=== PATIENT | female | born 1990 | race Caucasian/White ===

== ENCOUNTER 2022-11-24 20:17 | Observation (INO) | payer BC, SELFPAY ==
[2022-11-24 20:46] VITALS: BP 140/86; PULSE 91; RESP 16; TEMP 36.3
[2022-11-24 20:50] VITALS: TEMP 36.3
[2022-11-24 20:54] LABS: Basophils Percent Auto 0.2 % (0.2-2.0); Eosinophils Absolute Auto 0.1 10^3/uL (0.0-0.7); Eosinophils Percent Auto 0.6 % (0.9-7.0); Hematocrit 36.2 % (36.0-48.0); Hemoglobin 11.9 g/dL (12.0-16.0); Immature Granulocytes Abs Auto 0.04 10^3/uL (0.00-0.03); Immature Granulocytes Pct Auto 0.4 % (0.0-0.5); Lymphocytes Absolute Auto 1.7 10^3/uL (1.2-3.8); Mean Corpuscular HGB Conc 32.9 g/dL (29.9-35.2); Mean Corpuscular Hemoglobin 30.3 pg (26.7-34.0); Mean Corpuscular Volume 92.1 fL (81.0-99.0); Mean Platelet Volume 9.3 fL (9.5-13.5); Monocytes Absolute Auto 0.6 10^3/uL (0.3-0.8); Monocytes Percent Auto 6.5 % (1.7-12.0); Neutrophils Absolute Auto 6.6 10^3/uL (1.4-6.5); Neutrophils Percent Auto 73.3 % (43.0-75.0); Platelet Count 228 10^3/uL (150-450); Red Blood Count 3.93 10^6/uL (4.20-5.40)
[2022-11-24 20:55] LABS: Bilirubin Urine NEGATIVE (NEGATIVE); Blood Urine NEGATIVE (NEGATIVE); Clarity Urine CLEAR (CLEAR); Color Urine YELLOW (YELLOW); Glucose Urine UA NEGATIVE (NEGATIVE); Ketones Urine NEGATIVE (NEGATIVE); Leukocyte Esterase Urine NEGATIVE (NEGATIVE); Nitrite Urine NEGATIVE (NEGATIVE); Protein Urine NEGATIVE (NEG/TRACE); Specific Gravity Urine 1.025 (1.005-1.025); Urobilinogen Urine 0.2 EU/dL (0.2-1.0)
[2022-11-24 20:57] LABS: Urine Microscopic Indicated NO
[2022-11-24 21:01] LABS: Creatinine Urine Random 150.85 mg/dL (20.00-300.00); Protein Creatinine Ratio Urine 0.12; Total Protein Urine Random 17.4 mg/dL (<=11.9)
[2022-11-24 21:04] VITALS: BP 118/67; PULSE 90
[2022-11-24 21:10] LABS: Alanine Aminotransferase 18 U/L (14-59); Albumin Globulin Ratio 0.7; Albumin Level 2.5 g/dL (3.4-5.0); Alkaline Phosphatase 131 U/L (46-116); Anion Gap 11.4; Aspartate Amino Transferase 14 U/L (15-37); BUN Creatinine Ratio 11.8; Bilirubin Total 0.2 mg/dL (0.2-1.0); Carbon Dioxide 23.4 mmol/L (21.0-32.0); Chloride 105 mmol/L (98-107); Estimated GFR (African America >60 (>=60); Estimated GFR (Non-African Ame >60 (>=60); Globulin 3.6 g/dL; Glucose 97 mg/dL (74-106); Potassium 3.8 mmol/L (3.5-5.1); Sodium 136 mmol/L (136-145); Total Protein 6.1 g/dL (6.4-8.2); Uric Acid 4.9 mg/dL (2.6-6.0)
[2022-11-24 21:13] LABS: Partial Thromboplastin Time 23.9 sec (22.3-36.2); Prothrombin Time 9.4 sec (9.0-11.6)
[2022-11-24 21:14] LABS: INR <0.93
[2022-11-24 21:17] VITALS: BP 125/70; PULSE 88
[2022-11-24 21:32] VITALS: BP 132/79; PULSE 83
--- NOTE | 2022-11-25 00:20 | PM.OBPRCCS ---
Procedure Pre-op/Post-op diagnoses: PRIOR CS, DESIRES PERMANENT STERILIZATION Procedure: REPEAT LTCS WITH BILATERAL SALPINGECTOMY Estimated blood loss (mL): 600 Disposition: other (B[facility]ING [facility]ENTER) Anesthesia type: Spinal Complications: NONE Narrative: ABDULKADIR ADAM SA
--- NOTE | 2022-12-13 12:24 | PM.OBPN ---
OB - PN: Subj Subjective [place] status: other (This patient came into maternity because she stated her blood pressure at home was elevated and she had a headache though not the worst headache of her life. PIH labs were drawn. These labs were normal. The urine P:C ration was normal. Headache resolved with tylenol. ) Exam Constitutional Vital Signs, click to edit/add: Last Vital Signs Temp 97.3 F L 11/24/22 20:50 Pulse 83 11/24/22 21:32 Resp 16 11/24/22 20:46 BP 132/79 11/24/22 21:32 Documenting provider has reviewed patient's vital signs: yes Common normals: no apparent distress, oriented x3, healthy appearing and alert General appearance: cooperative and comfortable Nutritional appearance: obese HENMT Common normals: normocephalic and head/scalp atraumatic Eye Pupil: PERRL and accommodation reflex normal Neck & C-Spine Common normals: full ROM and supple Respiratory Common normals: normal respiratory effort Cardio Common normals: regular rate and regular rhythm GI Common normals: Normal to inspection, nondistended, normoactive bowel sounds present and non-tender Common normals: no CVA tenderness Extremity Common normals: normal to inspection, full ROM and no calf tenderness Neuro Common normals: CN's II-XII intact bilaterally, moves all extremities, no focal motor deficits, no sensory deficits noted and deep tendon reflexes 2+ bilaterally Psych Common normals: mental status grossly normal, thought process normal, cooperative and affect normal OB - PN: A/P Assessment and Plan (1) Elevated blood pressure affecting in third trimester, antepartum: (2) Term : Plan THIRD TRIMESTER IN [place]ESE PATIENT CONCERNED BECAUSE BP TAKEN AT HOME ELEVATED. ON MATERNITY BLOOD PRESSURE NORMAL. HEADACHE RESOLVED WITH TYLENOL. PIH ASSESSMENT NEGATIVE. HEART REASURRING. NO CONTRACTIONS. EXPLAINED THE LABS AND URINE P:C TO PATIENT. EXPLAINED EXAM NOT REFLECTING PIH. EXPLAINED THAT HOME BP MACHINES OFTEN NOT ACCURATE AND THAT THE CUFF FOR HER UPPER ARM MAY BE TOO SMALL. SHE WAS DISCHARGED HOME REASSURED AND WITHOUT QUESTIONS Time Spent with Patient Time: Total time spent is greater than 50% in coordination of care (as documented) at patient's floor/unit and/or counseling patient: Total time spent with greater than 50% in coordination of care (as documented) at patient's floor/unit and/or counseling patient: less than 15 minutes
== END 2022-11-24 23:50 | disposition home or self-care (01) ==
PROVIDERS: Admitting Provider Obstetrics & Gynecology; PCP Family Medicine; Visit Provider Obstetrics & Gynecology
DX: O16.3 Unspecified maternal hypertension, third trimester (principal); O26.893 Other specified pregnancy related conditions, third trimester; R51.9 Headache, unspecified; R60.9 Edema, unspecified; Z3A.00 Weeks of gestation of pregnancy not specified; Z3A.36 36 weeks gestation of pregnancy
CPT/HCPCS: 36415; 59025; 80053; 81003; 82570; 84156; 84550; 85025; 85610; 85730; 86850; 86900; 86901; G0378; G0379

== ENCOUNTER 2022-12-09 19:05 | Inpatient (IN) | payer BC, SELFPAY ==
[2022-12-09] VITALS (13 sets, daily range): BP systolic 128–154; BP diastolic 85–96; PULSE 78–99; RESP 16–18; TEMP 36.4–36.6
[2022-12-09 19:55] LABS: Basophils Percent Auto 0.2 % (0.2-2.0); Eosinophils Percent Auto 0.3 % (0.9-7.0); Hematocrit 36.1 % (36.0-48.0); Immature Granulocytes Abs Auto 0.04 10^3/uL (0.00-0.03); Immature Granulocytes Pct Auto 0.4 % (0.0-0.5); Lymphocytes Absolute Auto 1.4 10^3/uL (1.2-3.8); Lymphocytes Percent Auto 16.1 % (20.5-60.0); Mean Corpuscular HGB Conc 33.2 g/dL (29.9-35.2); Mean Corpuscular Hemoglobin 30.1 pg (26.7-34.0); Mean Corpuscular Volume 90.5 fL (81.0-99.0); Mean Platelet Volume 9.5 fL (9.5-13.5); Monocytes Absolute Auto 0.5 10^3/uL (0.3-0.8); Monocytes Percent Auto 5.9 % (1.7-12.0); Neutrophils Absolute Auto 6.9 10^3/uL (1.4-6.5); Neutrophils Percent Auto 77.1 % (43.0-75.0); Platelet Count 205 10^3/uL (150-450); Red Blood Count 3.99 10^6/uL (4.20-5.40)
[2022-12-09 19:56] LABS: Bilirubin Urine NEGATIVE (NEGATIVE); Blood Urine NEGATIVE (NEGATIVE); Clarity Urine CLEAR (CLEAR); Color Urine LT. YELLOW (YELLOW); Glucose Urine UA NEGATIVE (NEGATIVE); Ketones Urine NEGATIVE (NEGATIVE); Leukocyte Esterase Urine NEGATIVE (NEGATIVE); Nitrite Urine NEGATIVE (NEGATIVE); Protein Urine TRACE mg/dL (NEG/TRACE); Specific Gravity Urine 1.015 (1.005-1.025); Urobilinogen Urine 0.2 EU/dL (0.2-1.0)
--- NOTE | 2022-12-09 19:59 | US_ITS ---
[facility] [place] [id number] Patient Name: KITTY DUNLAP MRN: [id number] date: 1990 Sex: F Assigned Patient Location: [facility] Current Patient Location: [facility] Accession/Order Number: [id number] Exam Date: 12/09/2022 20:10 Report Date: 12/09/2022 21:33 At the request of: SASHA SR Procedure: US venous doppler LE LT EXAM: US venous doppler LE LT HISTORY: leg pain and edema COMPARISON: None TECHNIQUE: Extremity ultrasound performed to evaluate for DVT. Doppler interrogation was FINDINGS: No findings of left lower extremity DVT. Hypoechoic structure seen in the area of clinical concern in the left leg which may represent superficial thrombophlebitis as it is somewhat tubular US/US venous doppler LE LT IMPRESSION: No findings of left lower extremity DVT Possible superficial thrombophlebitis in the left thigh Electronically authenticated by: ALEX VIRK Date: 12/09/2022 21:33
[2022-12-09 20:00] LABS: Urine Microscopic Indicated NO
[2022-12-09 20:01] LABS: Creatinine Urine Random 106.32 mg/dL (20.00-300.00); Protein Creatinine Ratio Urine 0.24; Total Protein Urine Random 25.4 mg/dL (<=11.9)
[2022-12-09 20:30] LABS: Albumin Globulin Ratio 0.7; Albumin Level 2.5 g/dL (3.4-5.0); Alkaline Phosphatase 161 U/L (46-116); Anion Gap 14.8; Aspartate Amino Transferase 18 U/L (15-37); Bilirubin Total 0.2 mg/dL (0.2-1.0); Calcium 8.3 mg/dL (8.5-10.1); Carbon Dioxide 20.9 mmol/L (21.0-32.0); Chloride 104 mmol/L (98-107); Estimated GFR (African America >60 (>=60); Estimated GFR (Non-African Ame >60 (>=60); Globulin 3.7 g/dL; Glucose 79 mg/dL (74-106); Lactate Dehydrogenase 210 U/L (81-234); Potassium 3.7 mmol/L (3.5-5.1); Sodium 136 mmol/L (136-145); Total Protein 6.2 g/dL (6.4-8.2); Uric Acid 5.9 mg/dL (2.6-6.0)
[2022-12-09 20:47] LABS: Alanine Aminotransferase 15 U/L (14-59); BUN Creatinine Ratio 13.2
[2022-12-09] MEDS: DINOPROSTONE 10 MG VAG INSERT.ER VAGINAL (23:37)
[2022-12-09] MEDS: ZOLPIDEM TARTRATE 5 MG TABLET PO (23:37)
[2022-12-09] MEDS: ACETAMINOPHEN 500 MG TABLET 1000 MG PO (23:37)
[2022-12-09 23:43] LABS: Amphetamine Screen Urine NEGATIVE (NEGATIVE); Barbiturates Screen Urine NEGATIVE (NEGATIVE); Benzodiazepines Screen Urine NEGATIVE (NEGATIVE); Buprenorphine Screen Urine NEGATIVE (NEGATIVE); Cannabinoid Screen Urine NEGATIVE (NEGATIVE); Cocaine Screen Urine NEGATIVE (NEGATIVE); Methadone Screen Urine NEGATIVE (NEGATIVE); Methamphetamines Screen Urine NEGATIVE (NEGATIVE); Opiate Screen Urine NEGATIVE (NEGATIVE); Oxycodone Screen Urine NEGATIVE (NEGATIVE); Phencyclidine Screen Urine NEGATIVE (NEGATIVE); Tricyclic Antidepressant Urine NEGATIVE (NEGATIVE)
[2022-12-10] VITALS (26 sets, daily range): BP systolic 123–166; BP diastolic 66–93; PULSE 68–129; RESP 14–18; TEMP 37–37.6
--- NOTE | 2022-12-10 07:26 | W.PC.ACHO ---
Registration Status: ADM IN Primary Language: [place] Citizen Preferred Language: [place] Citizen Active Medications reported off to Viri OSUNA Generic Name Dose Route Start Last Admin Trade Name Freq PRN Reason Stop Dose Admin Acetaminophen 1,000 mg 12/09/22 23:18 12/09/22 23:37 Acetaminophen 500 Mg Tablet PO 1,000 mg Q6H PRN Administration Pain Scale 1-3 Calcium Carbonate 500 mg 12/09/22 23:16 Calcium Carbonate 500 Mg (200mg Elemental) Tab Chew PO TID PRN Indigestion Carboprost Tromethamine 250 mcg 12/09/22 22:44 Carboprost Tromethamine 250 Mcg/Ml 1 Ml Vial IM 12/11/22 22:46 Q15M PRN Bleeding Sodium Chloride 1,000 mls @ 125 mls/hr 12/09/22 22:45 Sodium Chloride 0.9% 1,000 Ml IV .Q8H DENNY Lidocaine 5 ml 12/09/22 22:50 Lidocaine Viscous 2% 15 Ml Solution TOPICAL ONCE PRN Pain Lidocaine 1 ml 12/09/22 22:50 Lidocaine Hcl 1% 200 Mg/20 Ml Mdv INJ ONCE PRN Pain Methylergonovine Maleate 0.2 mg 12/09/22 22:44 Methylergonovine Maleate 0.2 Mg/Ml Ampule IM 12/11/22 22:46 ONCE PRN Uterine Contractility/Contract Methylergonovine Maleate 0.2 mg 12/09/22 22:44 Methylergonovine Maleate 0.2 Mg Tablet PO 12/11/22 22:46 Q4H PRN Uterine Contractility/Contract Misoprostol 600 mcg 12/09/22 22:44 Misoprostol 100 Mcg Tablet PO 12/11/22 22:46 ONCE PRN Uterine Bleeding Misoprostol 800 mcg 12/09/22 22:44 Misoprostol 100 Mcg Tablet SL 12/11/22 22:46 ONCE PRN Uterine Bleeding Misoprostol 1,000 mcg 12/09/22 22:44 Misoprostol 100 Mcg Tablet MA 12/11/22 22:46 ONCE PRN Uterine Bleeding Ondansetron HCl 4 mg 12/09/22 22:44 Ondansetron Pf 4 Mg/2 Ml Vial IV Q6H PRN Nausea And Vomiting Ondansetron HCl 4 mg 12/09/22 22:44 Ondansetron 4 Mg Rapdis Tablet SL Q6H PRN Nausea And Vomiting Oxytocin 10 unit 12/09/22 22:44 Oxytocin 10 Unit/Ml Vial IM 12/11/22 23:59 ONCE PRN Bleeding Zolpidem Tartrate 5 mg 12/09/22 23:16 12/09/22 23:37 Zolpidem Tartrate 5 Mg Tablet PO 5 mg HS PRN Administration Insomnia Diet Category Date Time Status Clear Liquid Diet Diet 12/10/22 Breakfast Active IV Insertion/Site Date of IV Line Insertion [20g 12/09/22 right Antecubital] IV Insertion Time [20g right 19:35 Antecubital] Respiratory Oxygen Delivery Method Room Air
[2022-12-10] MEDS: 0.9 % SODIUM CHLORIDE 1,000 ML 999 ML IV (09:26)
[2022-12-10] MEDS: LIDOCAINE HCL 1% 200 MG/20 ML MDV 30 ML INJ (10:30)
[2022-12-10] MEDS: OXYTOCIN/0.9 % SODIUM CHLORIDE 20 UNITS/1,000 ML PLAST..BAG 125 UNIT IV (11:26)
--- NOTE | 2022-12-10 11:28 | PM.OBHP ---
OB - H&P: HPI History of Present Illness Chief complaint: HIGH BLOOD PRESSURE, CONTRACTION 38 WEEKS : 2 Para: 1 Date of last menstrual period: 03/16/2022 Gestational age based on last menstrual period: 38.3 Indications for induction: maternal hypertension Narrative: patient was at work yesterday and came to me in the office stating I don't feel good, I'm sandra, really nauseated and swollen and something just doesn't feel right. Blood pressure in the office was 160/100 and then left tilt position and on EFM and retaken 10 mins later, BP was 158/100. She states she has had a headache off and on all weekend and today rates her pain a 7 out of 10. She states she feels light headed, has a slight headache. Denies visual changes, no epigastric pain. She states she has been sandra all weekend. SVE 1-2/60/-3 very soft. Patient sent to [facility] to L&D for evaluation. Orders given. Dr Ly updated with my plan of care. Patient then c/o headache worsening, contractions getting more uncomfortable. Blood pressure ranging from 130's-150's over high 80's and 90's. I spoke with patient on the phone and she states I'm not comfortable going home, I just don't feel well. At this time she has mild preeclampsia and trace proteinuria and will be induced as plan of care. Labs reviewed, blood pressures elevated and orders given for admission, preeclamptic labs and Cervidil. History of Present Dating criteria: LMP confirmed by 1st trimester US care: good care Ultrasounds: normal 1st trimester US and normal mid trimester US complications comment: elevated blood pressures over the past 4 days Medical complications OB: none Labs Blood type: A (+) positive Rubella: nonimmune RPR/VDLR: nonreactive GBS status: negative HBsAG: negative Review of Systems ROS Status of ROS 10 or more systems reviewed and unremarkable except as noted in history and below [facility] PFS Surgical History (Updated 11/24/22 @ 21:02 by Dima Chino) [place] teeth extracted ?K08.409 - Partial loss of teeth, unspecified cause, unspecified class (ICD-10) Social History (Updated 11/24/22 @ 21:05 by Dima Chino) Within the past year, how often did you have a drink containing alcohol: never Within the past year, how often did you have six or more drinks on one occasion: never Score interpretation: A score less than 3 is consistent with normal alcohol consumption. Smoking status: Never smoker Non-prescribed substance use: denies use Highest level of school completed/degree received: Master's degree Are you now , , , , never or living with a partner: In a typical week, how many times do you talk on the telephone with family, friends, or neighbors: 3 or more times per week How often do you get together with friends or relatives: 3 or more times per week Little interest or pleasure in doing things: not at all Feeling down, depressed, or hopeless: not at all Feel stressed/tense/nervous/anxious/difficulty sleeping: not at all Do you think of yourself as: straight/heterosexual Gender Identity: female Meds Home Medications and Allergies Home Medications Medication Instructions Recorded Confirmed Type acetaminophen PO 11/24/22 History Allergies Allergy/AdvReac Type Severity Reaction Status Date / Time No Known Drug Allergies Allergy Verified 11/24/22 21:01 Exam Constitutional Vital Signs, click to edit/add: Last Vital Signs Temp 97.6 F 12/09/22 23:02 Pulse 94 H 12/10/22 11:25 Resp 16 12/10/22 06:53 BP 154/74 H 12/10/22 11:25 O2 Del Method Room Air 12/09/22 23:02 Documenting provider has reviewed patient's vital signs: yes Common normals: no apparent distress General appearance: cooperative Orientation/consciousness: Yes awake, Yes oriented to person, Yes oriented to place and Yes oriented to time HENMT Common normals: normocephalic Eye Common normals: EOMs intact bilaterally General eye: normal appearance of both eyes Neck & C-Spine Common normals: full ROM and no lymphadenopathy General: normal visual inspection Lymph Lymphatic: no lymphadenopathy noted Chest Common normals: inspection of chest normal Respiratory Common normals: normal respiratory effort Effort & inspection: able to speak in complete sentences Cardio Common normals: no JVD, regular rate and regular rhythm Rate: regular rate Rhythm: regular rhythm GI Common normals: Normal to inspection, nondistended, normoactive bowel sounds present and non-tender Inspection: normal to inspection Auscultation: normoactive bowel sounds Palpation: soft Percussion: normal to percussion Rectal Exam - Female: deferred Common normals: external appearance normal Back & Pelvis Common normals: thoracic and lumbar spine normal to inspection Extremity Common normals: normal to inspection and full ROM Neuro Common normals: oriented x3 and moves all extremities Sensorium/orientation: awake, alert, oriented to person, oriented to place and oriented to time Psych Common normals: mental status grossly normal, thought process normal, cooperative and affect normal Appearance: grossly normal Attitude: calm Activity/motor behavior: appropriate eye contact Speech: normal speech Thought process: normal thought process Results Labs Labs: Short CBC 12/09/22 Range/Units 19:43 WBC 9.0 (4.0-11.0) 10^3/uL Hgb 12.0 (12.0-16.0) g/dL Hct 36.1 (36.0-48.0) % Plt Count 205 (150-450) 10^3/uL BMP 12/09/22 19:43 Sodium 136 Potassium 3.7 Chloride 104 Carbon Dioxide 20.9 L BUN 9.0 Creatinine 0.68 Glucose 79 Calcium 8.3 L Liver Function 12/09/22 Range/Units 19:43 Total Bilirubin 0.2 (0.2-1.0) mg/dL AST 18 (15-37) U/L ALT 15 (14-59) U/L Alkaline Phosphatase 161 H (46-116) U/L Albumin 2.5 L (3.4-5.0) g/dL Urine 12/09/22 Range/Units 19:20 Urine Color Lt. yellow (YELLOW) Urine Clarity Clear (CLEAR) Urine pH 6.0 (5.0-9.0) Ur Specific Jack 1.015 (1.005-1.025) Urine Protein Trace (NEG/TRACE) mg/dL Urine Glucose (UA) Negative (NEGATIVE) mg/dL OB - A/P Assessment and Plan (1) Elevated blood pressure affecting in third trimester, antepartum: (2) Term : Plan Induction of labor- cervical ripening due to elevated blood pressure and headaches
--- NOTE | 2022-12-10 11:53 | PM.EN ---
Event Note Event Note: 0935 call received from RN with report patient is very uncomfortable and got in the shower. She removed the Cervidil and states pt is 3/80/-2. She wanted an epidural and RN states patient did not want to have another cervical exam after getting out of the shower. Order given to check patient before epidural. 0902 RN calls me in my office and states patient is complete and has the urge to push. I stated to nurse I am on my way. 1009 i arrived on unit. SVE complete/100/-1 bulging bag, patient in a hands and knees position. 1015 Patient repositioned to semi fowlers, AROM with sterile amniohook with return on moderate amount of clear, odorless fluid. heart tones stable before, during and after rupture. 1020 preparing for delivery. see Delivery note
--- NOTE | 2022-12-10 12:00 | PM.OBPRCVD ---
Procedure events: Pre-Eclampsia (mild preeclampsia ) Intrapartal events: None Induction method: other (Cervidil -cervical ripening ) Delivery augmentation: rupture of membranes Delivery monitor: external FHT and external uterine Route of delivery: Episiotomy Description: none Laceration description: labial (Left labial repair ) Delivery repair: Vicryl Estimated blood loss (mL): 300 Anesthesia type: None Disposition: no change Delivery date: 01/10/23 Gender: female presentation: vertex Placental delivery description: Spontaneous cord description: 3 Vessels, Nuchal Cord, Loose and Reduced heart rate - 1 minute: 100 bpm or Greater respiratory effort - 1 minute: Spontaneous/Strong Cry muscle tone - 1 minute: Active Movement reflex response - 1 minute: Prompt Response color - 1 minute: Bluish Hands or Feet total score - 1 minute: 9 heart rate - 5 minute: 100 bpm or Greater respiratory effort - 5 minute: Spontaneous/Strong Cry muscle tone - 5 minute: Active Movement reflex response - 5 minute: Prompt Response color - 5 minute: Bluish Hands or Feet total score - 5 minute: 9
[2022-12-10] MEDS: IBUPROFEN 400 MG TABLET 800 MG PO ×2 (13:02→20:18)
[2022-12-10] MEDS: GLYCERIN/WITCH HAZEL PADS 1 PAD TOPICAL (13:03)
[2022-12-10] MEDS: BENZOCAINE/MENTHOL 85 GRAM SPRAY BOTTLE 1 APPLIC TOPICAL (13:03)
--- NOTE | 2022-12-10 13:34 | PC.NURSE ---
1235- Full assessment completed. Patient left leg bruised, scratched, and scabbed d/t injury within the past week. Patient fell at home and after dogs chain wrapped around leg and caused further injury. Dopplers were completed and WNL. Patient complains of minimal pain at site. Leg pink and pulses present. Ruled as thrombophlebitis.
--- NOTE | 2022-12-10 16:22 | PC.NURSE ---
Pt and NB skin to skin infant licking on hands. Discuss previous experience of and unsuccessful efforts. I didn't really put effort into getting milk or keeping it going .. Pt desires to try states But using formula does not bother me Attempted to latch baby in laid back position, nipples flat with tendency to invert with stimulation. Discussed nipple shield as pt asked about benefits of one. Nipple shield discussed, demo of application and returned demo done. to cross cradle hold and latched baby well. Discussed learning of at breast, first 24 hours are spent learning infant and temperament. LC here to support and educate so pt may make informed decisions for self and baby. Verbalized understanding.
--- NOTE | 2022-12-10 19:27 | W.PC.ACHO ---
Registration Status: ADM IN Primary Language: Italian Preferred Language: Italian Active Medications Generic Name Dose Route Start Last Admin Trade Name Freq PRN Reason Stop Dose Admin Acetaminophen 650 mg 12/10/22 12:06 Acetaminophen 325 Mg Tablet PO Q6H PRN Mild Pain Al Hydroxide/Mg Hydroxide 2,400 mg 12/10/22 12:06 Magnesium Hydroxide 2,400 Mg/10 Ml Oral.Susp PO Q6H PRN Dyspepsia Benzocaine/Menthol 1 applic 12/10/22 12:06 12/10/22 13:03 Benzocaine/Menthol 85 Gram [place] Bottle TOPICAL 1 applic Q2H PRN Administration Pain Calcium Carbonate 500 mg 12/09/22 23:16 Calcium Carbonate 500 Mg (200mg Elemental) Tab Chew PO TID PRN Indigestion Carboprost Tromethamine 250 mcg 12/09/22 22:44 Carboprost Tromethamine 250 Mcg/Ml 1 Ml Vial IM 12/11/22 22:46 Q15M PRN Bleeding Diphenhydramine HCl 25 mg 12/10/22 09:27 Diphenhydramine Hcl 50 Mg/Ml (1ml) Vial IV 12/11/22 09:27 Q6H PRN Itching Diphtheria/Pertussis/Tetanus Vacc 0.5 ml 12/12/22 09:00 Adacel Diph,Pertuss(Acell),Tet Vac/Pf 0.5 Ml Adult Syringe IM 12/12/22 09:01 .ONCE ONE Docusate Sodium 100 mg 12/11/22 09:00 Docusate Sodium 100 Mg Capsule PO BID DENNY Ephedrine Sulfate 5 mg 12/10/22 09:27 Ephedrine Sulfate 50 Mg/Ml Vial IV 12/11/22 09:27 Q5M PRN Blood Pressure - Low Sodium Chloride 1,000 mls @ 125 mls/hr 12/09/22 22:45 12/10/22 09:26 Sodium Chloride 0.9% 1,000 Ml IV 999 mls/hr .Q8H DENNY Administration Ropivacaine/Sodium Chloride 400 mg in 200 mls @ 6 mls/hr 12/10/22 09:30 Naropin 0.2% 400 Mg/200 Ml Bag EPIDURAL 12/11/22 09:28 Q24H DENNY Oxytocin 20 unit/ Sodium 1,002 mls @ 125 mls/hr 12/10/22 12:15 12/10/22 10:30 Chloride IV 10/03/23 20:14 125 mls/hr Q8H DENNY Administration Ibuprofen 800 mg 12/10/22 13:00 12/10/22 13:02 Ibuprofen 400 Mg Tablet PO 800 mg Q8H DENNY Administration Lidocaine 5 ml 12/09/22 22:50 Lidocaine Viscous 2% 15 Ml Solution TOPICAL ONCE PRN Pain Lidocaine 30 ml 12/10/22 14:56 12/10/22 10:30 Lidocaine Hcl 1% 200 Mg/20 Ml Mdv INJ 30 ml ONCE PRN Administration Pain Measles/Mumps/Rubella Vaccine Live 0.5 ml 12/12/22 09:00 Measles,Mumps,Rubella Vacc/Pf 0.5 Ml Vial SQ 12/12/22 09:01 .ONCE ONE Methylergonovine Maleate 0.2 mg 12/09/22 22:44 Methylergonovine Maleate 0.2 Mg/Ml Ampule IM 12/11/22 22:46 ONCE PRN Uterine Contractility/Contract Methylergonovine Maleate 0.2 mg 12/09/22 22:44 Methylergonovine Maleate 0.2 Mg Tablet PO 12/11/22 22:46 Q4H PRN Uterine Contractility/Contract Misoprostol 600 mcg 12/09/22 22:44 Misoprostol 100 Mcg Tablet PO 12/11/22 22:46 ONCE PRN Uterine Bleeding Misoprostol 800 mcg 12/09/22 22:44 Misoprostol 100 Mcg Tablet SL 12/11/22 22:46 ONCE PRN Uterine Bleeding Misoprostol 1,000 mcg 12/09/22 22:44 Misoprostol 100 Mcg Tablet MD 12/11/22 22:46 ONCE PRN Uterine Bleeding Naloxone HCl 0.4 mg 12/10/22 09:27 Naloxone Hcl 0.4 Mg/Ml Vial IV 12/11/22 09:27 ONCE PRN Epidural Ondansetron HCl 4 mg 12/09/22 22:44 Ondansetron Pf 4 Mg/2 Ml Vial IV Q6H PRN Nausea And Vomiting Ondansetron HCl 4 mg 12/09/22 22:44 Ondansetron 4 Mg Rapdis Tablet SL Q6H PRN Nausea And Vomiting Oxytocin 10 unit 12/09/22 22:44 Oxytocin 10 Unit/Ml Vial IM 12/11/22 23:59 ONCE PRN Bleeding Senna 17.2 mg 12/10/22 20:00 Sennosides 8.6 Mg Tablet PO QHS PRN Constipation Simethicone 80 mg 12/10/22 12:06 Simethicone 80 Mg Tab.Chew PO QID PRN Abdominal Distention Temazepam 15 mg 12/10/22 12:06 Temazepam 15 Mg Capsule PO QHS PRN Sleep Witch Lori/Glycerin 1 pad 12/10/22 12:06 12/10/22 13:03 Glycerin/Witch Lori Pads TOPICAL 1 pad Q2H PRN Administration Pain Zolpidem Tartrate 5 mg 12/09/22 23:16 12/09/22 23:37 Zolpidem Tartrate 5 Mg Tablet PO 5 mg HS PRN Administration Insomnia Diet Category Date Time Status Regular Consistency Diet Diet 12/10/22 Lunch Active IV Insertion/Site Date of IV Line Insertion [20g 12/09/22 right Antecubital] IV Insertion Time [20g right 19:35 Antecubital] Respiratory Oxygen Delivery Method Room Air Oxygen Delivery Method Room Air Oxygen Delivery Method Room Air Cardiology Heart Sounds Strong,Regular Bowels Date of Last Bowel Movement [ 12/10/22 All Quadrants] Date of Last Bowel Movement [ 12/10/22 All Quadrants] Date of Last Bowel Movement [ 12/10/22 All Quadrants] Date of Last Bowel Movement [ 12/10/22 All Quadrants] Date of Last Bowel Movement [ 12/10/22 All Quadrants] Date of Last Bowel Movement [ 12/10/22 All Quadrants] Date of Last Bowel Movement [ 12/10/22 All Quadrants] Date of Last Bowel Movement [ 12/10/22 All Quadrants] Date of Last Bowel Movement [ 12/10/22 All Quadrants] Date of Last Bowel Movement 12/10/22 Renal Bladder Pattern Continent
[2022-12-11] MEDS: IBUPROFEN 400 MG TABLET 800 MG PO (05:11)
[2022-12-11 05:14] VITALS: BP 159/80; PULSE 84; RESP 16; TEMP 36.6
[2022-12-11 05:59] LABS: Basophils Percent Auto 0.3 % (0.2-2.0); Eosinophils Absolute Auto 0.1 10^3/uL (0.0-0.7); Eosinophils Percent Auto 0.7 % (0.9-7.0); Hematocrit 32.1 % (36.0-48.0); Hemoglobin 10.5 g/dL (12.0-16.0); Immature Granulocytes Abs Auto 0.04 10^3/uL (0.00-0.03); Immature Granulocytes Pct Auto 0.4 % (0.0-0.5); Lymphocytes Absolute Auto 1.8 10^3/uL (1.2-3.8); Lymphocytes Percent Auto 17.8 % (20.5-60.0); Mean Corpuscular HGB Conc 32.7 g/dL (29.9-35.2); Mean Corpuscular Volume 91.7 fL (81.0-99.0); Mean Platelet Volume 9.3 fL (9.5-13.5); Monocytes Absolute Auto 0.7 10^3/uL (0.3-0.8); Monocytes Percent Auto 6.9 % (1.7-12.0); Neutrophils Absolute Auto 7.6 10^3/uL (1.4-6.5); Neutrophils Percent Auto 73.9 % (43.0-75.0); Platelet Count 187 10^3/uL (150-450); Red Cell Distribution Width 13.2 % (11.0-15.0); White Blood Count 10.3 10^3/uL (4.0-11.0)
--- NOTE | 2022-12-11 07:10 | W.PC.ACHO ---
Registration Status: ADM IN Primary Language: [place] Preferred Language: [place] Active Medications Generic Name Dose Route Start Last Admin Trade Name Freq PRN Reason Stop Dose Admin Acetaminophen 650 mg 12/10/22 12:06 Acetaminophen 325 Mg Tablet PO Q6H PRN Mild Pain Al Hydroxide/Mg Hydroxide 2,400 mg 12/10/22 12:06 Magnesium Hydroxide 2,400 Mg/10 Ml Oral.Susp PO Q6H PRN Dyspepsia Benzocaine/Menthol 1 applic 12/10/22 12:06 12/10/22 13:03 Benzocaine/Menthol 85 Gram [place] Bottle TOPICAL 1 applic Q2H PRN Administration Pain Calcium Carbonate 500 mg 12/09/22 23:16 Calcium Carbonate 500 Mg (200mg Elemental) Tab Chew PO TID PRN Indigestion Carboprost Tromethamine 250 mcg 12/09/22 22:44 Carboprost Tromethamine 250 Mcg/Ml 1 Ml Vial IM 12/11/22 22:46 Q15M PRN Bleeding Diphenhydramine HCl 25 mg 12/10/22 09:27 Diphenhydramine Hcl 50 Mg/Ml (1ml) Vial IV 12/11/22 09:27 Q6H PRN Itching Diphtheria/Pertussis/Tetanus Vacc 0.5 ml 12/12/22 09:00 Adacel Diph,Pertuss(Acell),Tet Vac/Pf 0.5 Ml Adult Syringe IM 12/12/22 09:01 .ONCE ONE Docusate Sodium 100 mg 12/11/22 09:00 Docusate Sodium 100 Mg Capsule PO BID DENNY Ephedrine Sulfate 5 mg 12/10/22 09:27 Ephedrine Sulfate 50 Mg/Ml Vial IV 12/11/22 09:27 Q5M PRN Blood Pressure - Low Sodium Chloride 1,000 mls @ 125 mls/hr 12/09/22 22:45 12/10/22 09:26 Sodium Chloride 0.9% 1,000 Ml IV 999 mls/hr .Q8H DENNY Administration Ropivacaine/Sodium Chloride 400 mg in 200 mls @ 6 mls/hr 12/10/22 09:30 Naropin 0.2% 400 Mg/200 Ml Bag EPIDURAL 12/11/22 09:28 Q24H DENNY Ibuprofen 800 mg 12/10/22 13:00 12/11/22 05:11 Ibuprofen 400 Mg Tablet PO 800 mg Q8H DENNY Administration Lidocaine 5 ml 10/02/23 22:50 Lidocaine Viscous 2% 15 Ml Solution TOPICAL ONCE PRN Pain Lidocaine 30 ml 12/10/22 14:56 12/10/22 10:30 Lidocaine Hcl 1% 200 Mg/20 Ml Mdv INJ 30 ml ONCE PRN Administration Pain Measles/Mumps/Rubella Vaccine Live 0.5 ml 12/12/22 09:00 Measles,Mumps,Rubella Vacc/Pf 0.5 Ml Vial SQ 12/12/22 09:01 .ONCE ONE Methylergonovine Maleate 0.2 mg 12/09/22 22:44 Methylergonovine Maleate 0.2 Mg/Ml Ampule IM 12/11/22 22:46 ONCE PRN Uterine Contractility/Contract Methylergonovine Maleate 0.2 mg 12/09/22 22:44 Methylergonovine Maleate 0.2 Mg Tablet PO 12/11/22 22:46 Q4H PRN Uterine Contractility/Contract Misoprostol 600 mcg 12/09/22 22:44 Misoprostol 100 Mcg Tablet PO 12/11/22 22:46 ONCE PRN Uterine Bleeding Misoprostol 800 mcg 12/09/22 22:44 Misoprostol 100 Mcg Tablet SL 12/11/22 22:46 ONCE PRN Uterine Bleeding Misoprostol 1,000 mcg 12/09/22 22:44 Misoprostol 100 Mcg Tablet OK 12/11/22 22:46 ONCE PRN Uterine Bleeding Naloxone HCl 0.4 mg 12/10/22 09:27 Naloxone Hcl 0.4 Mg/Ml Vial IV 12/11/22 09:27 ONCE PRN Epidural Ondansetron HCl 4 mg 12/09/22 22:44 Ondansetron Pf 4 Mg/2 Ml Vial IV Q6H PRN Nausea And Vomiting Ondansetron HCl 4 mg 12/09/22 22:44 Ondansetron 4 Mg Rapdis Tablet SL Q6H PRN Nausea And Vomiting Oxytocin 10 unit 12/09/22 22:44 Oxytocin 10 Unit/Ml Vial IM 12/11/22 23:59 ONCE PRN Bleeding Senna 17.2 mg 12/10/22 20:00 Sennosides 8.6 Mg Tablet PO QHS PRN Constipation Simethicone 80 mg 12/10/22 12:06 Simethicone 80 Mg Tab.Chew PO QID PRN Abdominal Distention Temazepam 15 mg 10/03/23 12:06 Temazepam 15 Mg Capsule PO QHS PRN Sleep Witch Lori/Glycerin 1 pad 12/10/22 12:06 12/10/22 13:03 Glycerin/Witch Lori Pads TOPICAL 1 pad Q2H PRN Administration Pain Zolpidem Tartrate 5 mg 12/09/22 23:16 12/09/22 23:37 Zolpidem Tartrate 5 Mg Tablet PO 5 mg HS PRN Administration Insomnia Diet Category Date Time Status Regular Consistency Diet Diet 12/10/22 Lunch Active Respiratory Oxygen Delivery Method Room Air Oxygen Delivery Method Room Air Oxygen Delivery Method Room Air Cardiology Heart Sounds Strong,Regular Bowels Date of Last Bowel Movement [ 12/10/22 All Quadrants] Date of Last Bowel Movement [ 12/10/22 All Quadrants] Date of Last Bowel Movement [ 12/10/22 All Quadrants] Date of Last Bowel Movement [ 12/10/22 All Quadrants] Date of Last Bowel Movement [ 12/10/22 All Quadrants] Date of Last Bowel Movement [ 12/10/22 All Quadrants] Date of Last Bowel Movement [ 12/10/22 All Quadrants] Date of Last Bowel Movement [ 12/10/22 All Quadrants] Date of Last Bowel Movement [ 12/10/22 All Quadrants] Date of Last Bowel Movement 12/10/22 Date of Last Bowel Movement 12/10/22 Renal Bladder Pattern Continent
--- NOTE | 2022-12-11 07:35 | P.OBPN_ITS ---
OB - PN: Subj Subjective Patient comments: no complaints and pain well controlled [place] status: doing well Exam Constitutional Vital Signs, click to edit/add: Last Vital Signs Temp 97.9 F 12/11/22 05:14 Pulse 84 12/11/22 05:14 Resp 16 12/11/22 05:14 BP 159/80 H 12/11/22 05:14 O2 Del Method Room Air 12/10/22 20:20 Documenting provider has reviewed patient's vital signs: yes Common normals: no apparent distress Respiratory Common normals: normal respiratory effort and clear to auscultation bilaterally Cardio Common normals: regular rate and regular rhythm GI Common normals: Normal to inspection, nondistended, normoactive bowel sounds present Extremity Common normals: no clubbing, cyanosis or edema and no calf tenderness Results Labs Labs: Short CBC 12/11/22 Range/Units 05:42 WBC 10.3 (4.0-11.0) 10^3/uL Hgb 10.5 L (12.0-16.0) g/dL Hct 32.1 L (36.0-48.0) % Plt Count 187 (150-450) 10^3/uL OB - PN: A/P Assessment and Plan (1) Elevated blood pressure affecting in third trimester, antepartum: (2) Term : Plan - Vaginal Delivery day: 1 Plan: routine care, discharge home and follow up 6 weeks Time Spent with Patient Time: Total time spent is greater than 50% in coordination of care (as documented) at patient's floor/unit and/or counseling patient: Total time spent with greater than 50% in coordination of care (as documented) at patient's floor/unit and/or counseling patient: less than 15 minutes
[2022-12-11 07:44] VITALS: BP 158/97; PULSE 90
[2022-12-11 08:25] VITALS: RESP 14; TEMP 36.8
[2022-12-11] MEDS: DOCUSATE SODIUM 100 MG CAPSULE PO (08:33)
[2022-12-11] MEDS: LABETALOL HCL 200 MG TABLET PO (08:33)
[2022-12-11] MEDS: ACETAMINOPHEN 325 MG TABLET 650 MG PO (08:33)
--- NOTE | 2022-12-11 10:22 | PC.NURSE ---
Pt states feedings going better with use of shield. Baby is more interested in feeds and is content after feeds. Given handouts with discussions and questions answered. Pt states is confident in ability to continue and will return for follow up 12/13/2022.
[2022-12-11 11:21] VITALS: BP 109/66; PULSE 97
== END 2022-12-11 12:50 | disposition home or self-care (01) | DRG 807 ==
PROVIDERS: Admitting Provider Midwife; PCP Family Medicine; Visit Provider Midwife
DX: O14.04 Mild to moderate pre-eclampsia, complicating childbirth (principal); Z37.0 Single live birth; O70.0 First degree perineal laceration during delivery; O69.81X0 Labor and delivery complicated by cord around neck, without compression, not applicable or unspecified; Z3A.38 38 weeks gestation of pregnancy
CPT/HCPCS: 36415; 59025; 59050; 59410; 80053; 80307; 81003; 82570; 83615; 84156; 84550; 85025; 86850; 86900; 86901; 93971; 96374; 96376

== ENCOUNTER 2022-12-13 08:10 | Outpatient (OUT) | payer BC, SELFPAY ==
[2022-12-13 11:49] VITALS: BP 165/97; PULSE 72; RESP 18; TEMP 36.9; O2SAT 96
== END 2022-12-13 08:11 | disposition home or self-care (01) ==
LOC: FBCO 08:12
PROVIDERS: PCP Family Medicine; Visit Provider Midwife
DX: Z39.2 Encounter for routine postpartum follow-up (principal)

== ENCOUNTER 2022-12-15 07:45 | Outpatient (OUT) | payer BC, SELFPAY ==
[2022-12-14 09:58] VITALS: BP 161/85; PULSE 63
--- NOTE | 2022-12-14 10:07 | PC.NURSE ---
call out to regarding bp check
--- NOTE | 2022-12-14 10:10 | PC.NURSE ---
Addendum entered by Kassie Del Valle RN 12/14/22 10:28: 1010 Pt reports that milk is in, baby feeding every 2 hours and one time throughout night was 4 hours. Voiding and stooling almost jimmy feed stool turning to yellow seedy. Original Note: notified of bp and readings at home, also notified of mild ORNELAS since starting the procardia [address] Ortega wants pt to increase [place] to 20 mg TID and if bp check at home is <130/70 may hold that dose only. Discussed orders with pt. Pt has enough procardia pills for dose changes. Pt to return tomorrow for bp recheck. Pt verbalizes understanding and will be in 12-15-22 around 10:00 for bp check.
[2022-12-15 09:58] VITALS: BP 142/88
[2022-12-15 10:00] VITALS: BP 140/98
[2022-12-15 10:15] LABS: Creatinine Urine Random 16.03 mg/dL (20.00-300.00); Protein Creatinine Ratio Urine 0.37; Total Protein Urine Random <6.0 mg/dL (<=11.9)
== END 2022-12-15 10:15 | disposition home or self-care (01) ==
LOC: FBCO 07:47
PROVIDERS: PCP Family Medicine; Visit Provider Obstetrics & Gynecology
DX: O13.9 Gestational [pregnancy-induced] hypertension without significant proteinuria, unspecified trimester (principal); Z3A.00 Weeks of gestation of pregnancy not specified
CPT/HCPCS: 82570; 84156

== ENCOUNTER 2022-12-15 12:35 | Observation (INO) | payer BC, SELFPAY ==
[2022-12-15 12:40] VITALS: BP 144/92
[2022-12-15 13:27] LABS: Basophils Absolute Auto 0.1 10^3/uL (0.0-0.1); Basophils Percent Auto 0.6 % (0.2-2.0); Eosinophils Absolute Auto 0.2 10^3/uL (0.0-0.7); Eosinophils Percent Auto 1.9 % (0.9-7.0); Hematocrit 37.1 % (36.0-48.0); Hemoglobin 11.8 g/dL (12.0-16.0); Immature Granulocytes Abs Auto 0.02 10^3/uL (0.00-0.03); Immature Granulocytes Pct Auto 0.2 % (0.0-0.5); Lymphocytes Absolute Auto 1.9 10^3/uL (1.2-3.8); Lymphocytes Percent Auto 20.6 % (20.5-60.0); Mean Corpuscular HGB Conc 31.8 g/dL (29.9-35.2); Mean Corpuscular Hemoglobin 29.7 pg (26.7-34.0); Mean Corpuscular Volume 93.5 fL (81.0-99.0); Mean Platelet Volume 8.6 fL (9.5-13.5); Monocytes Absolute Auto 0.5 10^3/uL (0.3-0.8); Monocytes Percent Auto 5.1 % (1.7-12.0); Neutrophils Absolute Auto 6.5 10^3/uL (1.4-6.5); Neutrophils Percent Auto 71.6 % (43.0-75.0); Platelet Count 274 10^3/uL (150-450); Red Blood Count 3.97 10^6/uL (4.20-5.40); Red Cell Distribution Width 13.2 % (11.0-15.0)
--- NOTE | 2022-12-15 13:27 | PM.PN ---
Progress Note: Subjective Subjective Interval history: DISCHARGED FRIDAY S/P VAGINAL DELIVERY. WAS ON LABETALOL FOR PIH. DISCHARGED ON NIFEDIPINE. LABETALOL RESTARTED NIFEDIPINE GAVE PATIENT HEADACHES. AT BLOOD PRESSURE CHECK ON MATERNITY HEADACHE TREATED WITH MOTRIN AND IMPROVED. NO VISUAL CHANGES. BLOOD PRESSURE 140'S / 90'S. DENIES VISUAL CHANGES, RUQ PAIN, SOB, CHEST PAIN. RANDOM URINE SENT FOR P:C RATIO WHICH WAS 0.37. EARLIER IN WAS 0.12. A 24 HOUR URINE STARTED TO DIAGNOSE PROTEINURIA AND IF PIH LABS NORMAL, THEN REFER TO NEPHROLOGY. SHE IS PUMPING AND BABY RECEIVING EXCLUSIVELY BREAST MILK. Exam Constitutional Documenting provider has reviewed patient's vital signs: yes Common normals: no apparent distress, oriented x3 and healthy appearing Nutritional appearance: overweight HENMT Common normals: normocephalic and head/scalp atraumatic Eye Pupil: PERRL and accommodation reflex normal Neck & C-Spine Common normals: full ROM and supple Respiratory Common normals: normal respiratory effort Cardio Common normals: regular rate and regular rhythm GI Common normals: Normal to inspection, nondistended, normoactive bowel sounds present Common normals: no CVA tenderness Extremity Common normals: full ROM and no calf tenderness Neuro Common normals: CN's II-XII intact bilaterally, moves all extremities, no focal motor deficits and no sensory deficits noted Psych Common normals: mental status grossly normal, cooperative and affect normal Progress Note: A&P Assessment and Plan (1) Accelerated hypertension: Assessment and Plan: S/P DISCHARGE ON FRIDAY AFTER VAGINAL DELIVERY WITH PIH. DID NOT TOLERATED NIFEDIPINE. PUT BACK ON LABETALOL BUT AT INCREASED DOSE: 200 MG PO TID. RUNNING PIH LABS. P:C RATIO ON RANDOM URINE ELEVATED SO 24 HOUR URINE STARTED. BLOOD PRESSURES ACCEPTABLE ON LABETALOL. HER TOO HIGH ON NIFEDIPINE 20 MG PO TID. Plan IF PIH LABS NORMAL, SEND HOME BUT WILL NEED NEPHROLOGY CONSULT IF 24 HOUR URINE SHOWING PROTEINURIA. WILL STAY ON LABETALOL 200 MG PO TID UNTIL SEES DR. ARORA. DOES TAKE BLOOD PRESSURES AT HOME AND KNOWS WHEN TO NOTIFY PHYSICIAN FOR ELEVATED BLOOD PRESSURE GREATER OR EQUAL TO 160/100. CONTINUE PUMPING AND FEEDING BABY BREAST MILK. IT WAS EXPLAINED TO PATIENT THAT TOXEMIA CAN PRESENT UP TO ONE MONTH POST DELIVERY THOUGH AT THIS POINT NOT SUSPICIOUS FOR. LEANING MORE TO PIH AND OR NEPHROTIC SYNDROME. WILL INFORM DR. ARORA WHO WILL BE FOLLOWING UP WITH PATIENT.
[2022-12-15 13:40] LABS: Alanine Aminotransferase 32 U/L (14-59); Albumin Globulin Ratio 0.7; Albumin Level 2.9 g/dL (3.4-5.0); Alkaline Phosphatase 111 U/L (46-116); Anion Gap 12.5; Aspartate Amino Transferase 27 U/L (15-37); BUN Creatinine Ratio 12.5; Bilirubin Total 0.3 mg/dL (0.2-1.0); Calcium 9.4 mg/dL (8.5-10.1); Carbon Dioxide 28.1 mmol/L (21.0-32.0); Chloride 102 mmol/L (98-107); Estimated GFR (African America >60 (>=60); Estimated GFR (Non-African Ame >60 (>=60); Globulin 3.9 g/dL; Glucose 85 mg/dL (74-106); Lactate Dehydrogenase 289 U/L (81-234); Potassium 3.6 mmol/L (3.5-5.1); Sodium 139 mmol/L (136-145); Total Protein 6.8 g/dL (6.4-8.2); Uric Acid 6.2 mg/dL (2.6-6.0)
--- NOTE | 2022-12-15 13:55 | PM.PN ---
Progress Note: Subjective Subjective Interval history: HEADACHE IMPROVED WITH MOTRIN. UNDERSTANDS BACK ON LABETALOL BUT DOSE INCREASED TO 200 MG TID. FEELS GOOD. Exam Constitutional Documenting provider has reviewed patient's vital signs: yes Common normals: no apparent distress, oriented x3, alert and well nourished HENWY Common normals: normocephalic and head/scalp atraumatic Eye Pupil: PERRL and accommodation reflex normal Neck & C-Spine Common normals: full ROM Respiratory Common normals: normal respiratory effort Cardio Common normals: regular rate and regular rhythm GI Common normals: Normal to inspection, nondistended, normoactive bowel sounds present Common normals: no CVA tenderness Back & Pelvis Common normals: no CVA tenderness Extremity Common normals: full ROM General: edema (REFLEXES 2+) Neuro Common normals: CN's II-XII intact bilaterally, moves all extremities, no focal motor deficits and no sensory deficits noted Psych Common normals: mental status grossly normal, thought process normal, cooperative and affect normal Progress Note: Objective Labs Labs: Short CBC 12/15/22 Range/Units 13:09 WBC 9.0 (4.0-11.0) 10^3/uL Hgb 11.8 L (12.0-16.0) g/dL Hct 37.1 (36.0-48.0) % Plt Count 274 (150-450) 10^3/uL BMP 12/15/22 13:09 Sodium 139 Potassium 3.6 Chloride 102 Carbon Dioxide 28.1 BUN 9.0 Creatinine 0.72 Glucose 85 Calcium 9.4 Liver Function 12/15/22 Range/Units 13:09 Total Bilirubin 0.3 (0.2-1.0) mg/dL AST 27 (15-37) U/L ALT 32 (14-59) U/L Alkaline Phosphatase 111 (46-116) U/L Albumin 2.9 L (3.4-5.0) g/dL Progress Note: A&P Assessment and Plan (1) Accelerated hypertension: Assessment and Plan: LFT'S NORMAL. CLOTTING STUDY NORMAL. PLATELETS NORMAL. URIC ACID ELEVATED HOWEVER NOT DIAGNOSTIC AND PATIENT IS DELIVERED. NO HEADACHE. BLOOD PRESSURE WELL CONTROLLED ON LABETALOL. IMPROVEMENT IN DEPENDENT EDEMA. Plan SEND HOME. BRING 24 HOUR URINE COLLECTION BACK WHEN DUE. WILL INFORM PROVIDER (CAPRI). CALL FOR PROBLEM OR CONCERN.
[2022-12-15 14:16] VITALS: RESP 16
== END 2022-12-15 14:30 | disposition home or self-care (01) ==
LOC: FBC 12:39
PROVIDERS: Admitting Provider Obstetrics & Gynecology; PCP Family Medicine; Visit Provider Obstetrics & Gynecology
DX: O13.5 Gestational [pregnancy-induced] hypertension without significant proteinuria, complicating the puerperium (principal)
CPT/HCPCS: 36415; 80053; 82570; 83615; 84156; 84550; 85025; 85730; G0378; G0379

== ENCOUNTER 2022-12-16 08:50 | Outpatient (RCR) | payer BC, SELFPAY ==
[2022-12-16 13:53] VITALS: BP 153/100; PULSE 80; RESP 16
--- NOTE | 2022-12-16 14:03 | PC.NURSE ---
Arrive for visit. Baby more awake today, color pink, Resp easy, and tone strong flexed. Parents report increase in number of wet and stool diapers, yellow seedy in nature. For every 1 decent latch we have a handful of no latches at all . Mom states infant becomes frustrated with latching and then is bottle fed because both are now frustrated. LC assesses mouth and oral structures. 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 Questionable lower lip tie as well as posterior tongue tie. Tip of tongue can lift and try to cup on gloved finger, body of tongue has little movement. Baby does not extend tongue past lower lip. General massage of cheeks, around [place] lip massage, cheek sweeps and hip hop gapes used to encourage tongue movement and wider gape for latch. No latch without shield and then only suckled 10 minutes with shield and sleeps. Discussed with parents impact tethered oral structures have for feeding, airway development and gut health. 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 Is aware fo difficulties of tongue tie. Will call [facility] for further evaluation and possible release. Aware of follow up, stretches and possible body work needed.
== END 2022-12-16 13:50 | disposition home or self-care (01) ==
LOC: FBCO 08:50
PROVIDERS: PCP Family Medicine; Visit Provider Obstetrics & Gynecology
DX: Z39.1 Encounter for care and examination of lactating mother (principal)
CPT/HCPCS: G0463

== ENCOUNTER 2022-12-16 13:42 | Outpatient (REF) | payer BC, SELFPAY ==
[2022-12-16 14:13] LABS: Total Protein Urine Random 18.5 mg/dL (<=11.9)
[2022-12-16 14:31] LABS: Total Volume 24 Hour Urine 2200 mL/24hr
== END 2022-12-16 13:43 | disposition home or self-care (01) ==
LOC: LAB 13:42
PROVIDERS: PCP Family Medicine; Visit Provider Obstetrics & Gynecology
DX: I10 Essential (primary) hypertension (principal)
CPT/HCPCS: 84156

== ENCOUNTER 2022-12-16 16:03 | Observation (INO) | payer BC, SELFPAY ==
[2022-12-16] VITALS (10 sets, daily range): BP systolic 132–170; BP diastolic 77–90; PULSE 73–90; TEMP 36.9–37
[2022-12-16] MEDS: ACETAMINOPHEN 500 MG TABLET 1000 MG PO ×2 (16:50→23:40)
[2022-12-16] MEDS: 0.9 % SODIUM CHLORIDE 1,000 ML 75 ML IV (16:55)
[2022-12-16] MEDS: MAGNESIUM SULFATE IN WATER 4 GM/100 ML PIGGYBACK IV (17:02)
[2022-12-16] MEDS: MAGNESIUM SULFATE IN WATER 40 GM/1,000 ML IV.SOLN IV (17:26)
--- NOTE | 2022-12-16 19:15 | W.PC.ACHO ---
Registration Status: ADM RYAN Primary Language: Preferred Language: Active Medications Generic Name Dose Route Start Last Admin Trade Name Freq PRN Reason Stop Dose Admin Acetaminophen 1,000 mg 12/16/22 16:15 12/16/22 16:50 Acetaminophen 500 Mg Tablet PO 1,000 mg Q6H PRN Administration Headache Calcium Gluconate 1,000 mg 12/16/22 16:10 Calcium Gluconate 1,000 Mg/10 Ml Vial IVP ONCE PRN toxicity Sodium Chloride 1,000 mls @ 75 mls/hr 12/16/22 16:15 12/16/22 16:55 Sodium Chloride 0.9% 1,000 Ml IV 75 mls/hr .[id number] DENNY Administration Magnesium Sulfate 40 gm in 1,000 mls @ 50 mls/hr 12/16/22 17:00 12/16/22 17:26 Magnesium Sulf 40 G/1,000 Ml IV 50 mls/hr Q13H DENNY Administration Labetalol HCl 300 mg 12/16/22 22:00 Labetalol Hcl 200 Mg Tablet PO TID DENNY Zolpidem Tartrate 5 mg 12/16/22 16:20 Zolpidem Tartrate 5 Mg Tablet PO HS PRN Insomnia Diet Category Date Time Status Regular Consistency Diet Diet 12/16/22 16:21 Active IV Insertion/Site Date of IV Line Insertion [20g 12/16/22 right Forearm] IV Insertion Time [20g right 16:50 Forearm] Bowels Date of Last Bowel Movement [ 12/15/22 All Quadrants]
[2022-12-16] MEDS: LABETALOL HCL 200 MG TABLET 300 MG PO (21:45)
[2022-12-17] VITALS (7 sets, daily range): BP systolic 128–163; BP diastolic 76–97; PULSE 76–85; TEMP 37.1
[2022-12-17] MEDS: 0.9 % SODIUM CHLORIDE 1,000 ML 75 ML IV (05:50)
[2022-12-17] MEDS: ACETAMINOPHEN 500 MG TABLET 1000 MG PO ×2 (06:25→12:00)
[2022-12-17] MEDS: LABETALOL HCL 200 MG TABLET 300 MG PO ×2 (06:27→15:13)
--- NOTE | 2022-12-17 07:12 | W.PC.ACHO ---
Registration Status: ADM RYAN Primary Language: Preferred Language: Active Medications Generic Name Dose Route Start Last Admin Trade Name Edenilson PRN Reason Stop Dose Admin Acetaminophen 1,000 mg 12/16/22 16:15 12/17/22 06:25 Acetaminophen 500 Mg Tablet PO 1,000 mg Q6H PRN Administration Headache Calcium Gluconate 1,000 mg 12/16/22 16:10 Calcium Gluconate 1,000 Mg/10 Ml Vial IVP ONCE PRN toxicity Sodium Chloride 1,000 mls @ 75 mls/hr 12/16/22 16:15 12/17/22 05:50 Sodium Chloride 0.9% 1,000 Ml IV 75 mls/hr .[id number] DENNY Administration Magnesium Sulfate 40 gm in 1,000 mls @ 50 mls/hr 12/16/22 17:00 12/16/22 17:26 Magnesium Sulf 40 G/1,000 Ml IV 50 mls/hr Q13H DENNY Administration Labetalol HCl 300 mg 12/16/22 22:00 12/17/22 06:27 Labetalol Hcl 200 Mg Tablet PO 300 mg TID DENNY Administration Zolpidem Tartrate 5 mg 12/16/22 16:20 Zolpidem Tartrate 5 Mg Tablet PO HS PRN Insomnia Diet Category Date Time Status Regular Consistency Diet Diet 12/16/22 16:21 Active IV Insertion/Site Date of IV Line Insertion [20g 12/16/22 right Forearm] IV Insertion Time [20g right 16:50 Forearm] Bowels Date of Last Bowel Movement [ 12/15/22 All Quadrants]
--- NOTE | 2022-12-17 07:27 | PM.OBHP ---
OB - H&P: HPI History of Present Illness Chief complaint: Hypertension : 2 Para: 1 Comments: patient is readmitted for 24 OBS for magnesium sulfate IV therapy due to elevated blood pressure after delivery. Patient was seen in my office yesterday after seeing lean process deployment consultant at the hospital. Soniya called me from hospital with report of elevated blood pressure. Patient then came to my office and blood pressure was 160/100 and then 158/100. I then sent her to this hospital for IV magnesium treatment. Patient did not want to go to [place] for treatment and stated I want to stay local and I'll go back to [place]. Patient denied headache, visual changes and no epigastric pain. I also spoke with Dr Ly and gave him report and he agrees with plan to readmit patient for magnesium sulfate and increase the Labetalol to 300 mg TID History of Present complications: induced hypertension PFSH PFS Surgical History [place] teeth extracted ?K08.409 - Partial loss of teeth, unspecified cause, unspecified class (ICD-10) Social History Within the past year, how often did you have a drink containing alcohol: never Within the past year, how often did you have six or more drinks on one occasion: never Score interpretation: A score less than 3 is consistent with normal alcohol consumption. Smoking status: Never smoker Non-prescribed substance use: denies use Highest level of school completed/degree received: Master's degree Are you now , , , , never or living with a partner: In a typical week, how many times do you talk on the telephone with family, friends, or neighbors: 3 or more times per week How often do you get together with friends or relatives: 3 or more times per week Little interest or pleasure in doing things: not at all Feeling down, depressed, or hopeless: not at all Feel stressed/tense/nervous/anxious/difficulty sleeping: not at all Do you think of yourself as: straight/heterosexual Gender Identity: female Meds Home Medications and Allergies Home Medications Medication Instructions Recorded Confirmed Type acetaminophen PO 11/24/22 History labetalol 200 mg tablet 200 mg PO BID 30 days #60 tabs 12/11/22 Rx Allergies Allergy/AdvReac Type Severity Reaction Status Date / Time No Known Drug Allergies Allergy Verified 11/24/22 21:01 Exam Constitutional Vital Signs, click to edit/add: Last Vital Signs Temp 98.7 F 12/17/22 03:37 Pulse 76 12/17/22 06:55 BP 135/76 12/17/22 06:55 Common normals: no apparent distress, oriented x3 and alert General appearance: cooperative and anxious (patient tearful as she is frustrated that she needs to go back to hospital ) Nutritional appearance: overweight Orientation/consciousness: Yes awake, Yes oriented to person, Yes oriented to place and Yes oriented to time HENMT Common normals: normocephalic Eye Common normals: EOMs intact bilaterally General eye: normal appearance of both eyes Lymph Lymphatic: no lymphadenopathy noted Chest Chest: abnormal inspection of the chest Respiratory Common normals: normal respiratory effort Effort & inspection: able to speak in complete sentences Auscultation: clear to auscultation bilaterally Cardio Common normals: regular rate and regular rhythm Rate: regular rate Rhythm: regular rhythm GI Common normals: Normal to inspection, nondistended, normoactive bowel sounds present Common normals: no CVA tenderness Back & Pelvis Common normals: no CVA tenderness Extremity Common normals: normal to inspection and full ROM General: normal exam except as noted Neuro Saulo Coma Scale: document GCS findings Common normals: oriented x3 Sensorium/orientation: awake, alert, oriented to person, oriented to place and oriented to time Psych Common normals: thought process normal, cooperative, affect normal and speech normal Appearance: grossly normal Attitude: calm OB - A/P Assessment and Plan (1) Accelerated hypertension: Plan continue magnesium sulfate orders and Labetalol. If blood pressures are in normal range I will discharge her to home around 5:30 pm this evening after magnesium infusion is discontinued. It will be 24 hours at approximately 5:30 pm
--- NOTE | 2022-12-17 07:55 | P.OBPN_ITS ---
OB - PN: Subj Subjective Patient comments: no complaints [place] feeding status: exclusively Narrative: patient up sitting in bed and feeding baby a bottle and pumping her breasts. She is smiling and feeling better. She states she has a dull headache but the Tylenol is helping. She states she is a little dizzy and we discussed that can be from the magnesium and the shifting of her blood pressure from standing and walking to resting in bed. PVU. She has no other c/o and states I would like to go home later this evening if everything is ok. Exam Narrative Exam Narrative: assessment is negative Constitutional Vital Signs, click to edit/add: Last Vital Signs Temp 98.7 F 12/17/22 03:37 Pulse 76 12/17/22 06:55 BP 135/76 12/17/22 06:55 Documenting provider has reviewed patient's vital signs: yes General appearance: cooperative, comfortable, well kempt and well developed Orientation/consciousness: Yes awake, Yes oriented to person, Yes oriented to place and Yes oriented to time HENMT Common normals: normocephalic Eye Common normals: EOMs intact bilaterally Neck & C-Spine Common normals: full ROM General: normal visual inspection Lymph Lymphatic: no lymphadenopathy noted Chest Common normals: inspection of chest normal Respiratory Common normals: normal respiratory effort, no retractions, no use of accessory muscles and clear to auscultation bilaterally Cardio Common normals: no JVD, regular rate and regular rhythm Rate: regular rate Rhythm: regular rhythm GI Common normals: Normal to inspection, nondistended, normoactive bowel sounds present, soft to palpation and non-tender Common normals: no CVA tenderness Back & Pelvis Common normals: no CVA tenderness Extremity Common normals: normal to inspection and full ROM Neuro Common normals: oriented x3 Psych Common normals: mental status grossly normal, thought process normal and cooperative OB - PN: A/P Assessment and Plan (1) Accelerated hypertension: Plan - Vaginal Delivery day: 6 Plan: discharge home Comment: discharge patient this evening after magnesium sulfate infusion is completed for 24 hour time frame. Also blood pressures need to be within normal parameters Time Spent with Patient Time: Total time spent is greater than 50% in coordination of care (as documented) at patient's floor/unit and/or counseling patient: Total time spent with greater than 50% in coordination of care (as documented) at patient's floor/unit and/or counseling patient: less than 15 minutes
[2022-12-17] MEDS: MAGNESIUM SULFATE IN WATER 40 GM/1,000 ML IV.SOLN IV (13:16)
--- NOTE | 2022-12-18 07:43 | PC.NURSE ---
12/16/2022 - 1630 Pt sent from office for continued increased BP's since discharge despite oral BP meds. C/O ORNELAS. To have Magnesium Sulfate treatment.
== END 2022-12-17 18:20 | disposition home or self-care (01) ==
PROVIDERS: Admitting Provider Midwife; PCP Family Medicine; Visit Provider Midwife
DX: O13.5 Gestational [pregnancy-induced] hypertension without significant proteinuria, complicating the puerperium (principal)
CPT/HCPCS: 84156; 96365; 96366; 96376; G0378; G0379

== ENCOUNTER 2022-12-27 09:00 | Outpatient (OUT) | payer BC, SELFPAY ==
--- NOTE | 2022-12-27 12:46 | PC.NURSE ---
RachelRioel and 2 1/2 week old daughter Bambi arrives for visit. States Mostly bottle feed her during the day as trying to latch her with a toddler is really hard. Able to get baby latched with shield in evening when toddler sleeps. States had oral revision of upper lip tie, left buccal tie, and posterior tongue tie. Right buccal tie not released as not tight . Pt has continued to do massage exercises with baby and now does stretch exercises after oral revision. Infant weight is up to 8-5 today, parents voice many wet and stool diapers daily also. Baby received 2-3 oz via bottle when not at breast every 2-3 hours. Mom continues to pump frequently to support supply. Baby to mom for feed. Shield applied and baby struggles to latch on right breast, off and on frequently, does not settle into the feed or sustain latch. Shield off and no latch. Baby then offered a laid back position with mom and becomes frantic. Arches back, cries, roots does not latch with or without shield. Baby calmed by mom. Moved into a side lying position where drops of glucose water placed on nipple. Infant quiets and latches without use of shield. Gives few sucks and swallows. pauses and opens eyes wide. Begins bursts of sucking and swallows with pauses. Continues to nurse in smooth rhythm for 23 min. Mom tearful and excited with effort from baby. Moved to second breast in side lying position with latch immediately , no shield used feeds for another 15 min before releasing latch. Parents excited for feeding changes. Discussed realistic expectation for feeding and goal is 50% of feeds are at the breast with or without (preferably) shield, reducing the number of bottles infant receives. to get better at breast feeding, baby needs to be at the breast Schedules next follow up for 01/01/2023. Willing and excited to work on feeding plan.
== END 2022-12-27 13:21 | disposition home or self-care (01) ==
PROVIDERS: PCP Family Medicine; Visit Provider Obstetrics & Gynecology
DX: Z39.1 Encounter for care and examination of lactating mother (principal)
CPT/HCPCS: G0463